=== PATIENT | female | born 1975 | race Caucasian/White ===

== ENCOUNTER 2023-05-28 06:57 | Outpatient (OUT) | payer OTHER, SELFPAY ==
--- NOTE | 2023-05-28 | CA_ITS ---
Patient Name: SOFIA SAUNDERS MR#: [id number] : 1975 Exam Date: 05/28/2023 Ordering Doctor: BRUNO RAMIREZ M.D. ECHOCARDIOGRAM REPORT PROCEDURE: CA ECHO DOPPLER COMPLETE INDICATIONS: Tumor/thrombus IVC, Cardiac tumor, atrial COMPARISON: None. DESCRIPTION: COMPLETE ECHOCARDIOGRAM Real-time transthoracic echocardiography with 2D, M-mode, spectral and color flow Doppler performed. QUALITY: Technical quality was good. LEFT VENTRICLE: Normal chamber size. Left ventricular wall thickness is increased. LV EF: Global left ventricular systolic function is normal. Calculated left ventricular ejection fraction is 60%. No wall motion abnormalities. DIASTOLIC: Cannot assess diastolic function. ATRIAL SEPTUM: Inadequately seen. LEFT ATRIUM: Normal chamber size. RIGHT ATRIUM: Large mobile mass occupying the right atrium measuring 7.7 x 4.3 x 3.5cm. Differential diagnosis includes tumor vs thrombus. The mass protrudes into the right ventricle across the tricuspid valve. There are multiple, echodense, mobile structures attached to the ventricular side of mass; these could represent thrombus versus vegetation. RIGHT VENTRICLE: Normal chamber size. Normal systolic function. TRICUSPID VALVE: Not well visualized due to right atrial mass. MITRAL VALVE: Normal mobility and thickness. No evidence of mitral valve stenosis. There is no mitral annular calcification. No mitral regurgitation. AORTIC VALVE: Normal trileaflet appearance. No visible sclerosis. Normal leaflet mobility. No evidence of aortic valve stenosis. No aortic regurgitation. AORTIC ROOT: Normal diameter and appearance. PULMONIC VALVE: Normal thickness and mobility. No stenosis. Trivial regurgitation. PERICARDIUM: Moderate anterior pericardial effusion. Isoechoic area measuring 1.6 x 4.3cm seen in the anterior aspect of the pericardium. IVC: Intraluminal mass (tumor vs thrombus) measuring 7.8 x 3.0cm. CONCLUSION: 1. Global left ventricular systolic function is normal; visually estimated ejection fraction is 60 to 65% 2. Left ventricular wall thickness is increased 3. Normal right ventricular size and systolic function 4. There is a large mobile mass occupying almost the entirety of the right atrium and protruding into the right ventricle; differential diagnosis includes tumor versus thrombus 5. Moderate anterior pericardial effusion is seen; there is an echogenic mass seen in the pericardium of similar echocardiographic characteristics to the right atrial mass 6. An intraluminal mass is seen within the inferior vena cava; tumor versus thrombus 7. Suggest further imaging such as cardiac MRI or CT to further evaluate these masses Critical findings were relayed to the ordering physician at the time of the examination Adult Echocardiography Procedure Report Left Ventricle LVEDD (3.7 - 5.6 cm): 3.12 cm LVESD (2.2 - 4.0 cm): 2.22 cm LVIVS thickness (0.6 - 1.2 cm): 1.80 cm LVPW thickness (0.5 - 1.0 cm): 0.86 cm e': 0.04 m/s E - e': 10.25 LVOT Max Gradient: 2.21 mm[Hg] LVOT Area (cm2): 0.74 m/s Peak Velocity (LVOT): 0.74 m/s Mean Velocity (LVOT): 0.45 m/s LVOT Diameter 2.06 cm Left Ventricular Ejection Fraction: 60.01 % Left Atrium LA Volume Index (2D A2C): 31.50 ml/m2 Left Atrium Systolic Dimension: 2.69 cm Mitral Valve MV E to A Ratio: 0.55 Mitral Valve A-Wave Peak Velocity: 0.81 m/s Mitral Valve E-Wave Peak Velocity: 0.44 m/s Right Ventricle Aorta AO Root Diam: 3.25 cm Ascending Ao Diam: 3.33 cm Aortic Valve AoV Area (Peak David): 2.85 cm2, 2.85 cm2 AoV Area (VTI): 3.85 cm2, 3.85 cm2 Peak Velocity(Antegrade Flow): 0.87 m/s Peak Gradient(Antegrade Flow): 3.01 mm[Hg] Mean Velocity(Antegrade Flow): 0.54 m/s Mean Gradient(Antegrade Flow): 1.36 mm[Hg] Velocity Time Integral: 12.73 cm Tricuspid Valve Peak Velocity (Regurgitant Flow): 1.37 m/s Pulmonic Valve Peak Velocity: 0.72 m/s Peak Gradient: 2.09 mm[Hg] Right Atrium Dictated by: Alireza Oneil M.D. on 05/28/2023 at 08:40 Approved by: Alireza Oneil M.D. on 05/28/2023 at 08:51
== END 2023-05-28 06:58 | disposition home or self-care (01) ==
LOC: CARD 06:57
PROVIDERS: Visit Provider Student in an Organized Health Care Education/Training Program
DX: D49.89 Neoplasm of unspecified behavior of other specified sites (principal)
CPT/HCPCS: 93306